=== PATIENT | male | born 2000 | race Caucasian/White ===

== ENCOUNTER 2023-05-06 12:45 | Emergency (ER) | payer OTHER ==
[2023-05-06] MEDS ORDERED: IBUPROFEN 400 MG TABLET (FP) PO ONE ×2 (12:54→13:02)
[2023-05-06 12:58] VITALS: BP 125/74; PULSE 88; RESP 16; TEMP 98.3; BMI 24.4
[2023-05-06] MEDS ORDERED: ACETAMINOPHEN 500 MG TABLET (FP) PO ONE (13:05)
[2023-05-06] MEDS ORDERED: ACETAMINOPHEN 500 MG TABLET (FP) ONE (13:17)
[2023-05-06] MEDS ORDERED: LIDOCAINE 5% TOPICAL PATCH TP ONE (14:10)
[2023-05-06] MEDS ORDERED: METHOCARBAMOL 500 MG TABLET PO ONE (14:11)
[2023-05-06] MEDS ORDERED: METHOCARBAMOL 500 MG TABLET ONE (14:20)
[2023-05-06] MEDS ORDERED: LIDOCAINE 5% TOPICAL PATCH ONE (14:20)
[2023-05-06] MEDS ORDERED: LIDOCAINE PATCH REMOVAL MC SCH (22:00)
== END 2023-05-06 14:50 | disposition home or self-care (01) ==
LOC: FER 12:45
PROC: 2W38X1Z Immobilization of Right Upper Extremity using Splint (ICD-10-PCS; principal; 2023-05-06)
DX: S60.221A Contusion of right hand, initial encounter (principal); M54.6 Pain in thoracic spine; M79.641 Pain in right hand; M54.50 Low back pain, unspecified; W03.XXXA Other fall on same level due to collision with another person, initial encounter; Y93.89 Activity, other specified; Y92.019 Unspecified place in single-family (private) house as the place of occurrence of the external cause
CPT/HCPCS: 72070-TC-FY; 72100-TC-FY; 73000-TC-RT-FY; 73070-TC-RT-FY; 73130-TC-RT-FY; 99284-25